=== PATIENT | female | born 1985 | race Caucasian/White ===

== ENCOUNTER 2017-04-22 12:17 | Day surgery (SDC) | payer OTHER ==
[~2017-04-22] VITALS: Ht 162.6 cm; Wt 117.9 kg
--- NOTE | ~2017-04-22 | EGD ---
EGD REPORT [facility] [address] [place]. [address] NAME: LUZ WARD : [birth year] [place]US [place] [facility] [place] [id number] AGE: 31 ADM/REG DATE : 04/22/17 MR#: [id number] REPORT SERV DATE: 04/22/17 DICTATED BY: FIONA MOORE DATE: 04/22/17 REPORT STATUS : Draft TRANSCRIBED BY: [facility] DATE: 04/22/17 Endoscopy Center Patient Name: Luz Ward Date of : 1985 Attending MD: TINY MOORE MD Procedure Date No Time: 04/22/2017 Procedure: Upper GI endoscopy Indications: Gastro-esophageal reflux disease, Nausea with vomiting Medicines: See the Anesthesia note for documentation of the administered medications Complications: No immediate complications. Estimated blood loss: None. Procedure: Pre-Anesthesia Assessment: - ASA Grade Assessment: II - A patient with mild systemic disease. - Prior to the procedure, a History and Physical was performed, and patient medications and allergies were reviewed. The patient's tolerance of previous anesthesia was also reviewed. The risks and benefits of the procedure and the sedation options and risks were discussed with the patient. All questions were answered, and informed consent was obtained. Prior Anticoagulants: The patient has taken no previous anticoagulant or antiplatelet agents. After reviewing the risks and benefits, the patient was deemed in satisfactory condition to undergo the procedure. After obtaining informed consent, the endoscope was passed under direct vision. Throughout the procedure, the patient's blood pressure, pulse, and oxygen saturations were monitored continuously. The GIF [id number] was introduced through the mouth, and advanced to the second part of duodenum. The upper GI endoscopy was accomplished without difficulty. The patient tolerated the procedure well. Findings: The examined duodenum was normal. Biopsies were taken with a cold forceps for histology. The entire examined stomach was normal. Biopsies were taken with a cold forceps for histology. The cardia and gastric fundus were normal on retroflexion. The examined esophagus was normal. Impression: - Normal examined duodenum. Biopsied. - Normal stomach. Biopsied. - Normal esophagus. EGD REPORT [address] [address] NAME: LUZ WARD : [birth year] [place]US [place] [facility] [place] [id number] AGE: 31 ADM/REG DATE : 04/22/17 MR#: [id number] REPORT SERV DATE: 04/22/17 DICTATED BY: FIONA MOORE DATE: 04/22/17 REPORT STATUS : Draft TRANSCRIBED BY: [employer] DATE: 04/22/17 Recommendation: - Patient has a contact number available for emergencies. The signs and symptoms of potential delayed complications were discussed with the patient. Return to normal activities tomorrow. Written discharge instructions were provided to the patient. - Regular diet. - Discharge patient to home. - Continue present medications. - Await pathology results. - Return to my office in 4 months. Procedure Code(s): --- Professional --- 08801, Esophagogastroduodenoscopy, flexible, transoral; with biopsy, single or multiple Diagnosis Code(s): --- Professional --- K21.9, Gastro-esophageal reflux disease without esophagitis R11.2, Nausea with vomiting, unspecified CPT copyright 2013 [employer]. All rights reserved. The codes documented in this report are preliminary and upon hims coder review may be revised to meet current compliance requirements. TINY MOORE MD 04/22/2017 3:56 PM This report has been signed electronically. Number of Addenda: 0 Note Initiated On: 04/22/2017 3:37 PM Scope Withdrawal Time 0 hours 0 minutes 0 seconds [address] [place] [address]
[~2017-04-22 12:17] MED LIST: VITAMINS & HERBS
== END 2017-04-22 23:59 | disposition home health service (06) ==
LOC: DMU 12:17
PROVIDERS: Internal Medicine Gastroenterology
PROC: 0DB68ZX Excision of Stomach, Via Natural or Artificial Opening Endoscopic, Diagnostic (ICD-10-PCS; 2017-04-22)
PROC: 0DB98ZX Excision of Duodenum, Via Natural or Artificial Opening Endoscopic, Diagnostic (ICD-10-PCS; principal; 2017-04-22 14:00)
DX: K29.50 Unspecified chronic gastritis without bleeding (principal); E66.9 Obesity, unspecified; K21.9 Gastro-esophageal reflux disease without esophagitis; Z88.8 Allergy status to other drugs, medicaments and biological substances; Z79.899 Other long term (current) drug therapy; Z98.890 Other specified postprocedural states
CPT/HCPCS: 84703; 88305